=== PATIENT | female | born 1995 | race Caucasian/White ===

== ENCOUNTER 2017-01-30 13:47 | Inpatient (IN) | payer OTHER ==
[2017-01-30] MEDS: SODIUM CHLORIDE 0.9% FLUSH 10 ML SOL IV SCH (14:30)
[2017-01-30] MEDS ORDERED: MEPIVACAINE HCL 1% MPF 30 ML SOL INFIL PRN (14:58)
[2017-01-30] MEDS ORDERED: OXYTOCIN 10000 MU/ML SOL IM PRN (14:58)
[2017-01-30] MEDS ORDERED: CARBOPROST 250 MCG/ML SOL IM PRN (14:58)
[2017-01-30] MEDS ORDERED: METHYLERGONOVINE MALEATE 0.2 MG/ML SOL IM PRN (14:58)
[2017-01-30] MEDS ORDERED: LACTATED RINGERS 1,000 ML IV PRN (14:58)
[2017-01-30] MEDS ORDERED: AMPICILLIN 1 GM PDS 2 GM in SODIUM CHLORIDE 0.9% 100 ML 100 ML IV SCH (15:30)
[2017-01-30] MEDS ORDERED: AMPICILLIN 1 GM PDS ONE ×2 (15:49→19:37)
[2017-01-30] MEDS: SODIUM CHLORIDE 0.9% FLUSH 10 ML SOL IV PRN ×2 (16:00→19:44)
[2017-01-30] MEDS: AMPICILLIN 1 GM PDS 1 GM in SODIUM CHLORIDE 0.9% 100 ML 100 ML IV SCH (19:43)
[2017-01-30] MEDS: FENTANYL 100MCG/2ML SOL IV PRN ×2 (19:55→22:33)
[2017-01-30] MEDS ORDERED: DIPHENHYDRAMINE 50 MG/ML SOL IM PRN (22:45)
[2017-01-30] MEDS ORDERED: LACTATED RINGERS 1,000 ML IV SCH ×2 (22:45)
[2017-01-30] MEDS ORDERED: NALOXONE HYDROCHLORIDE 0.4 MG/ML SOL IV PRN (22:45)
[2017-01-30] MEDS ORDERED: HYDROXYZINE HYDROCHLORIDE 25 MG/ML SOL IM PRN (22:45)
[2017-01-30] MEDS ORDERED: DIPHENHYDRAMINE 25 MG CAP PO PRN (22:45)
[2017-01-30] MEDS ORDERED: MORPHINE SULFATE 0.5 MG/ML SOL ONE (23:20)
[2017-01-30 23:36] LABS: BASOPHILS % (AUTO) 0 % (0-3); EOSINOPHILS % (AUTO) 0 % (0-9); HEMATOCRIT 32 % (35-47); MEAN CORPUSCULAR HGB CONC 33.7 gm/dl (32.0-36.0); MEAN CORPUSCULAR VOLUME 84 fL (81-99); MONOCYTES % (AUTO) 5.3 % (0-12); NEUTROPHILS % (AUTO) 85.8 % (37-80)
[2017-01-31] MEDS ORDERED: AMPICILLIN 1 GM PDS ONE ×3 (00:06→11:08)
[2017-01-31] MEDS: AMPICILLIN 1 GM PDS 1 GM in SODIUM CHLORIDE 0.9% 100 ML 100 ML IV SCH ×5 (00:17→18:36)
[2017-01-31] MEDS: SODIUM CHLORIDE 0.9% FLUSH 10 ML SOL IV SCH ×4 (00:50→21:45)
[2017-01-31] MEDS ORDERED: TERBUTALINE SULFATE 1 MG/ML SOL SC PRN (01:37)
[2017-01-31] MEDS ORDERED: OXYTOCIN 10000 MU/ML 20,000 MU in LACTATED RINGERS 1,000 ML IV SCH (01:45)
[2017-01-31] MEDS: SODIUM CHLORIDE 0.9% FLUSH 10 ML SOL IV PRN (02:58)
[2017-01-31] MEDS ORDERED: LACTATED RINGERS 1,000 ML IV SCH (07:00)
[2017-01-31] MEDS: LACTATED RINGERS 1,000 ML IV SCH ×2 (07:13→15:40)
[2017-01-31] MEDS ORDERED: BENZOCAINE/MENTHOL 1 SPR TOP PRN (14:42)
[2017-01-31] MEDS ORDERED: TEMAZEPAM 15MG 15 MG CAP PO PRN (14:42)
[2017-01-31] MEDS ORDERED: ACETAMINOPHEN 325 MG PO PRN (14:42)
[2017-01-31] MEDS ORDERED: METHYLERGONOVINE MALEATE 0.2 MG TAB PO PRN (14:42)
[2017-01-31] MEDS ORDERED: FLEET ENEMA PR PRN (14:42)
[2017-01-31] MEDS ORDERED: WITCH HAZEL 1 EA PAD TOP PRN (14:42)
[2017-01-31] MEDS ORDERED: BISACODYL 10 MG SUP PR PRN (14:42)
[2017-01-31] MEDS: APAP/HYDROCODONE 325/5 TAB PO PRN ×2 (15:33→21:49)
[2017-01-31] MEDS: DOCUSATE SODIUM 100 MG SGL PO SCH (21:49)
[2017-02-01] MEDS: APAP/HYDROCODONE 325/5 TAB PO PRN ×3 (07:13→20:20)
[2017-02-01] MEDS: SODIUM CHLORIDE 0.9% FLUSH 10 ML SOL IV SCH ×2 (08:06→18:43)
[2017-02-01] MEDS: DOCUSATE SODIUM 100 MG SGL PO SCH ×2 (08:29→20:20)
[2017-02-01] MEDS: IBUPROFEN 600 MG TAB PO PRN (08:38)
[2017-02-01] MEDS: FERROUS SULFATE 325 MG TAB PO SCH ×2 (18:42→20:20)
[2017-02-02] MEDS: IBUPROFEN 600 MG TAB PO PRN (00:06)
[2017-02-02] MEDS: APAP/HYDROCODONE 325/5 TAB PO PRN (06:11)
[2017-02-02 06:19] VITALS: BP 99/67; PULSE 74; RESP 20; TEMP 97.7; O2SAT 97
[2017-02-02] MEDS: FERROUS SULFATE 325 MG TAB PO SCH (09:36)
[2017-02-02] MEDS: DOCUSATE SODIUM 100 MG SGL PO SCH (09:37)
== END 2017-02-02 10:55 | disposition home or self-care (01) | DRG 775 ==
LOC: OBSVTOIN 14:00 → OB 14:00
PROVIDERS: ADMIT Family Medicine; ATTEND Family Medicine
PROC: 10D07Z6 Extraction of Products of Conception, Vacuum, Via Natural or Artificial Opening (ICD-10-PCS; principal; 2017-01-31)
PROC: 0KQM0ZZ Repair Perineum Muscle, Open Approach (ICD-10-PCS; 2017-01-31)
DX: O70.1 Second degree perineal laceration during delivery (principal); Z37.0 Single live birth; Z3A.40 40 weeks gestation of pregnancy
CPT/HCPCS: 36415; 59025; 84112; 85018; 85025; 94760; 99070; J0290; J0670; J1200; J2274; J2590; J3010; J3105